=== PATIENT | male | born 1970 | race Caucasian/White ===

== ENCOUNTER 2017-12-02 18:06 | Emergency (ER) | payer OTHER ==
[~2017-12-02] VITALS: Ht 182.9 cm; Wt 96.6 kg
[~2017-12-02 18:06] MED LIST: PROTONIX40 MG PO
[2017-12-02] MEDS ORDERED: PANADOL EXTRA500 MG (19:54)
[2017-12-02] MEDS ORDERED: MUCINEX DM ER1 EAC1 (19:55)
== END 2017-12-02 21:37 | disposition home or self-care (01) ==
LOC: ER 18:06
DX: B34.9 Viral infection, unspecified (principal); J11.1 Influenza due to unidentified influenza virus with other respiratory manifestations

== ENCOUNTER 2018-04-27 20:58 | Emergency (ER) | payer OTHER ==
[~2018-04-27] VITALS: Ht 182.9 cm; Wt 95.3 kg
[~2018-04-27 20:58] MED LIST changes: +MUCINEX DM ER1 EAC1; +PANADOL EXTRA500 MG
[2018-04-28] MEDS ORDERED: BUDESONIDE0.5 MG/2 M IH (04:08)
[2018-04-28] MEDS ORDERED: IPRAT-ALBUT 0.5-3 ML IH (04:08)
[2018-04-28] MEDS ORDERED: ZITHROMAX500 MG PO (04:08)
[2018-04-28] MEDS ORDERED: TESSALON PERLE100 M1 PO (04:08)
[2018-04-28] MEDS ORDERED: MEDROLPACK PO (04:08)
== END 2018-04-28 04:35 | disposition home or self-care (01) ==
LOC: ER 20:58
DX: J06.9 Acute upper respiratory infection, unspecified (principal)

== ENCOUNTER 2021-01-06 16:18 | Emergency (ER) | payer OTHER ==
[~2021-01-06] VITALS: Ht 182.9 cm; Wt 95.3 kg
[~2021-01-06 16:18] MED LIST changes: +BUDESONIDE0.5 MG/2 M IH; +IPRAT-ALBUT 0.5-3 ML IH; +MEDROLPACK PO; +TESSALON PERLE100 M1 PO; +ZITHROMAX500 MG PO
[2021-01-06] MEDS ORDERED: AMOX1TAB5 (16:58)
[2021-01-06] MEDS ORDERED: IBU800 MG (16:59)
[2021-01-06] MEDS ORDERED: CLINDAMYCI75 MG/5 M1 (16:59)
== END 2021-01-06 18:26 | disposition home or self-care (01) ==
LOC: ER 16:18
DX: K08.89 Other specified disorders of teeth and supporting structures (principal)